=== PATIENT | female | born 1990 | race Caucasian/White ===

== ENCOUNTER → 2023-11-16 16:59 | Outpatient (REF) | payer BC, SELFPAY | LOC: PNTC 16:59 | PROVIDERS: ATTENDING PHYSICIAN Obstetrics & Gynecology | DX: O36.5990 Maternal care for other known or suspected poor fetal growth, unspecified trimester, not applicable or unspecified (principal) | CPT/HCPCS: 76816 ==

== ENCOUNTER → 2023-12-14 17:31 | Outpatient (REF) | payer BC, SELFPAY | LOC: PNTC 17:31 | PROVIDERS: ATTENDING PHYSICIAN Obstetrics & Gynecology | DX: O36.5910 Maternal care for other known or suspected poor fetal growth, first trimester, not applicable or unspecified (principal) | CPT/HCPCS: 76816 ==

== ENCOUNTER → 2024-01-11 17:22 | Outpatient (REF) | payer BC, SELFPAY | LOC: PNTC 17:22 | PROVIDERS: ATTENDING PHYSICIAN Obstetrics & Gynecology | DX: O34.219 Maternal care for unspecified type scar from previous cesarean delivery (principal); O44.20 Partial placenta previa NOS or without hemorrhage, unspecified trimester | CPT/HCPCS: 36415; 76816 ==

== ENCOUNTER → 2024-01-14 10:42 | Outpatient (REF) | payer BC, SELFPAY | LOC: REG 10:42 | PROVIDERS: ATTENDING PHYSICIAN Obstetrics & Gynecology | DX: Z33.1 Pregnant state, incidental (principal) | CPT/HCPCS: 36415; 86850; 86870; 86900; 86901 ==

== ENCOUNTER → 2024-01-20 09:20 | Outpatient (REF) | payer BC, SELFPAY | LOC: PNTC 09:20 | PROVIDERS: ATTENDING PHYSICIAN Obstetrics & Gynecology | DX: O36.0930 Maternal care for other rhesus isoimmunization, third trimester, not applicable or unspecified (principal) | CPT/HCPCS: 36415; 59025; 76815 ==

== ENCOUNTER → 2024-01-27 14:57 | Outpatient (REF) | payer BC, SELFPAY | LOC: PNTC 14:57 | PROVIDERS: ATTENDING PHYSICIAN Obstetrics & Gynecology | DX: O36.0191 Maternal care for anti-D [Rh] antibodies, unspecified trimester, fetus 1 (principal) | CPT/HCPCS: 59025; 76815 ==

== ENCOUNTER 2024-01-28 01:18 | Inpatient (IN) | payer BC, SELFPAY ==
[2024-01-28] MEDS: LR 1000 IV (01:30)
[2024-01-28] MEDS: PITOCIN 30 UNITS/NSS 500 ML IV (01:45)
[2024-01-28] MEDS: CYTOTEC 800 MCG RECTAL (02:00)
[2024-01-28 02:16] LABS: % Basophils 0.4 % (0-2); % Eosinophils 1.3 % (0-6); % Immature Granulocytes 0.5 % (0-0.5); % Lymphocytes 24.8 % (20.5-51.1); % Monocytes 6.2 % (1.7-9.3); % Neutrophils 66.8 % (42.2-75.2); Absolute Basophils 0.1 10^3/uL (0-0.2); Absolute Eosinophils 0.2 10^3/uL (0-0.7); Absolute Immature Granulocytes 0.1 10^3/uL (0-0.05); Absolute Lymphocytes 4.2 10^3/uL (1.2-3.4); Absolute Monocytes 1.1 10^3/uL (0.1-0.6); Absolute Neutrophils 11.4 10^3/uL (1.4-6.5); Hematocrit 35.9 % (37.0-47.0); Hemoglobin 12.2 g/dL (12.0-16.0); Mean Corpuscular Hgb 27.9 pg (27.0-31.0); Mean Platelet Volume 9.5 fL (7.4-10.4); Nucleated Red Blood Cells % 0 %; Platelet Count 370 10^3/uL (130-400); Red Blood Cell Count 4.38 10^6/uL (4.20-5.40); White Blood Cell Count 17.1 10^3/uL (4.8-10.8)
[2024-01-28 02:26] VITALS: BMI 29.3
[2024-01-28 02:30] VITALS: BP 109/82
[2024-01-28] MEDS: TRANEXAMIC ACID 100 IV (02:47)
[2024-01-28] MEDS: MOTRIN 600 MG PO ×4 (03:00→22:10)
[2024-01-28] MEDS: SENOKOT-S 1 TABLET PO (10:32)
[2024-01-29 05:28] LABS: Hematocrit 27.4 % (37.0-47.0); Hemoglobin 9.2 g/dL (12.0-16.0)
[2024-01-29] MEDS: MOTRIN 600 MG PO (08:43)
[2024-01-29] MEDS: SENOKOT-S 1 TABLET PO (08:45)
[2024-02-01 14:53] LABS: Syphilis/T. pallidum Ab Reflex Negative (Negative)
== END 2024-01-29 14:53 | disposition home or self-care (01) | DRG 807 ==
LOC: LDRP 01:18
PROVIDERS: ADMITTING PHYSICIAN Obstetrics & Gynecology; FAMILY PHYSICIAN Family Medicine
PROC: 0KQM0ZZ Repair Perineum Muscle, Open Approach (ICD-10-PCS; 2024-01-28)
PROC: 10E0XZZ Delivery of Products of Conception, External Approach (ICD-10-PCS; 2024-01-28)
DX: O42.02 Full-term premature rupture of membranes, onset of labor within 24 hours of rupture (principal); Z37.0 Single live birth; Z3A.39 39 weeks gestation of pregnancy; O70.1 Second degree perineal laceration during delivery; O77.0 Labor and delivery complicated by meconium in amniotic fluid; J45.909 Unspecified asthma, uncomplicated; O99.52 Diseases of the respiratory system complicating childbirth; O62.3 Precipitate labor; Z91.040 Latex allergy status
CPT/HCPCS: 88307; 85014; 85018; 85025; 86780; 86850; 86870; 86900; 86901; 86902; 86920; 86922